=== PATIENT | male | born 1970 | race Two or more races ===

== ENCOUNTER 2018-05-21 02:58 | Emergency (ER) | payer SELFPAY ==
[~2018-05-21] VITALS: Ht 172.7 cm; Wt 95.3 kg
[2018-05-21] MEDS ORDERED: THIAMINE INJ 100 MG, MULTIPLE VITAMIN 10 ML, FOLIC ACID 1 MG, MAGNESIUM SULF SDV 50% 8 ... IV STA ×5 (05:19)
[2018-05-21] MEDS ORDERED: MORPHINE SULFATE 4 MG/ML SYR/VIAL IV ONE (05:30)
[2018-05-21] MEDS ORDERED: ONDANSETRON HCL 4 MG/2 ML VIAL IV ONE (05:30)
[2018-05-21] MEDS ORDERED: cefTRIAXone 1GM/50ML D5W 50 ML IV ONE (05:30)
[2018-05-21 06:02] LABS: INR 0.99 (0.9-1.15); Partial Thromboplastin Time 20.3 sec (23.78-33.04); Prothrombin Time 10.6 sec (9.27-12.13)
[2018-05-21 06:07] LABS: Eosinophils # (auto) 0 uL; Hemoglobin 11.7 g/dL (13.5-17.5); Lymphocytes % (auto) 3.8 % (10.0-50.0); Monocytes # (auto) 1.1 uL; Platelet Count (auto) 349 10^3/uL (140-450)
[2018-05-21 06:09] LABS: Basophils # (auto) 0 uL; Basophils % (auto) 0.2 % (0.0-2.0); Eosinophils % (auto) 0.1 % (0.0-7.0); Lymphocytes # (auto) 0.8 uL; Mean Corpuscular Hgb Conc. 31.7 g/dL (32.0-36.0); Mean Corpuscular Volume 75.9 fL (80.0-100.0); Monocytes % (auto) 5.4 % (0.0-12.0); Neutrophils # (auto) 18.2 uL; Neutrophils % (auto) 90.5 % (37.0-80.0); Red Blood Cells 4.87 10^6/uL (4.5-5.90); White Blood Cell 20.1 10^3/uL (4.4-10.8)
[2018-05-21 06:16] LABS: Calcium 8.1 mg/dL (8.5-10.1); Potassium 3.2 mmol/L (3.5-5.1)
[2018-05-21 06:20] LABS: Bilirubin, Total 0.3 mg/dL (0.2-1.0); Total Protein 8.3 g/dL (6.4-8.2)
[2018-05-21] MEDS ORDERED: POTASSIUM CHL 20 Meq TABLET PO ONE (06:45)
[2018-05-21 07:47] LABS: Amphetamine Screen, Urine NEGATIVE (NEGATIVE); Barbiturate Scree,Urine NEGATIVE (NEGATIVE); Benzodiazephine Screen, Urine NEGATIVE (NEGATIVE); Cannabinoid Screen, Urine NEGATIVE (NEGATIVE); Cocaine Screen, Urine NEGATIVE (NEGATIVE); Opiate Scree,Urine NEGATIVE (NEGATIVE); Phencyclidine Screen, Urine NEGATIVE (NEGATIVE)
[2018-05-21 09:30] VITALS: BP 145/58
== END 2018-05-21 10:15 | disposition home or self-care (01) ==
LOC: ER 03:21
DX: S02.2XXA Fracture of nasal bones, initial encounter for closed fracture (principal); S00.83XA Contusion of other part of head, initial encounter; S66.911A Strain of unspecified muscle, fascia and tendon at wrist and hand level, right hand, initial encounter; G92 Toxic encephalopathy; I10 Essential (primary) hypertension; K52.9 Noninfective gastroenteritis and colitis, unspecified; F10.120 Alcohol abuse with intoxication, uncomplicated; Y08.89XA Assault by other specified means, initial encounter; Y93.89 Activity, other specified; Y99.8 Other external cause status; Y92.89 Other specified places as the place of occurrence of the external cause
CPT/HCPCS: 36415; 70450; 70486; 73130; 80053; 80307; 80320; 85025; 85610; 85730; 96374; 96375; 99285; J0696; J7030